=== PATIENT | male | born 1975 | race American Indian/Alaskan Native ===

== ENCOUNTER 2020-09-20 19:31 | Emergency (ER) | payer SELFPAY ==
[2020-09-22 12:32] VITALS: BP 128/77
== END 2020-09-22 12:05 | disposition home or self-care (01) ==
LOC: ED 19:31
DX: F32.9 Major depressive disorder, single episode, unspecified (principal); R44.1 Visual hallucinations; F17.200 Nicotine dependence, unspecified, uncomplicated; Z79.899 Other long term (current) drug therapy; Z20.822 Contact with and (suspected) exposure to COVID-19
CPT/HCPCS: 36415; 80048; 80307; 81001; 85025; 99284; U0003; 80320; G0480